=== PATIENT | male | born 1970 | race Caucasian/White ===

== ENCOUNTER 2020-06-06 06:46 | Outpatient (REF) | payer BC, SELFPAY ==
[2020-06-06 07:38] LABS: MANUAL DIFF FLAG NO
[2020-06-06 07:47] LABS: Basophils Percent Auto 0.4 % (0-2); Eosinophils Absolute Auto 0.1 X10*3/uL (0.0-0.4); Eosinophils Percent Auto 1.7 % (0-4); Lymphocytes Absolute Auto 1.5 X10*3/uL (1.2-4.9); Lymphocytes Percent Auto 31.5 % (20-40); Mean Corpuscular Hemoglobin 25.5 pg (27.0-33.0); Mean Corpuscular Volume 81.5 fL (80-98); Monocytes Absolute Auto 0.2 X10*3/uL (0.1-1.2); Monocytes Percent Auto 4.8 % (2-11); Neutrophils Absolute Auto 2.8 X10*3/uL (2.0-8.3); Neutrophils Percent Auto 61.6 % (45-73); Platelet Count 281 X10*3/uL (160-400); White Blood Count 4.6 X10*3/uL (4.8-10.8)
[2020-06-06 08:31] LABS: Albumin Level 4.1 g/dL (3.5-5.0); Alkaline Phosphatase 64 U/L (39-117); Anion Gap 13 (12-20); Bilirubin Total 0.4 mg/dL (0.0-1.0); Blood Urea Nitrogen 18 mg/dL (9-16); C Reactive Protein 1.28 mg/dL (< or = 0.50); Carbon Dioxide 24 mmol/L (22-29); Chloride 107 mmol/L (96-108); Cholesterol 135 mg/dL; Estimated Glomerular Filt Rate > 60; Glucose Random 91 mg/dL (60-115); HDL Cholesterol 56 mg/dL; LDL Cholesterol Calculated 64 mg/dl; Percent Iron Saturation 11 % (15-50); Potassium 4.1 mmol/l (3.3-5.1); Sodium 140 mmol/L (135-145); Total Iron Binding Capacity 387 mcg/dL (228-428); Total Protein 7.1 g/dL (6.5-8.0); Triglycerides 75 mg/dL; Unsaturated Iron Binding 346 ug/dL
[2020-06-06 08:36] LABS: TSH reflex Free T4 1.53 mIU/mL (0.32-4.0); Vitamin D 25-OH Total 21.3 ng/mL (>30)
[2020-06-06 08:50] LABS: Folate 6.4 ng/mL (> or = 4.0); Vitamin B12 517 pg/mL (200-900)
[2020-06-06 09:59] LABS: Estimated Average Glucose 97 mg/dL
[2020-06-09 14:56] LABS: Insulin Level Total 11.2 uIU/mL
[2020-06-09 20:21] LABS: Calcium (PTHI) 9.2 mg/dL (8.6-10.3); PTHI 53 pg/mL (14-64)
[2020-06-10 17:32] LABS: Zinc 72 mcg/dL (60-130)
[2020-06-10 21:21] LABS: Vitamin A 45 mcg/dL (38-98)
[2020-06-12 13:32] LABS: Vitamin B1 <6 nmol/L (8-30)
[2020-07-31 11:20] LABS: Red Blood Count 4.59 X10*6/uL (4.20-5.50)
[2020-07-31 11:23] LABS: Hemoglobin 11.7 g/dl (12.0-16.0); Mean Platelet Volume 10.3 fL (9.4-12.3)
[2020-07-31 11:24] LABS: Hematocrit 37.4 % (37-47)
[2020-07-31 11:25] LABS: Mean Corpuscular HGB Conc 31.3 g/dl (31.0-35.0)
[2020-07-31 11:58] LABS: Ferritin 9 ng/mL (10-250); Iron 41 mcg/dL (30-160)
[2020-07-31 11:59] LABS: Alanine Aminotransferase 12 U/L (0-31); Aspartate Amino Transferase 13 U/L (5-31)
== END 2020-06-06 06:47 | disposition home or self-care (01) ==
LOC: HO.LAB 06:46
PROVIDERS: PCP Family Medicine; Visit Provider Surgery
DX: Z01.818 Encounter for other preprocedural examination (principal)
CPT/HCPCS: 36415; 80053; 80061; 82306; 82607; 82728; 82746; 83036; 83525; 83540; 83970; 84425; 84443; 84590; 84630; 85025; 86140

== ENCOUNTER → 2020-06-09 13:09 | Outpatient (BNVA) | payer BC, SELFPAY | PROVIDERS: PCP Family Medicine; Visit Provider Dietitian, Registered | DX: Z76.89 Persons encountering health services in other specified circumstances (principal) ==

== ENCOUNTER → 2020-06-10 13:25 | Outpatient (BNVA) | payer BC, SELFPAY | PROVIDERS: PCP Family Medicine; Visit Provider Surgery | DX: E66.01 Morbid (severe) obesity due to excess calories (principal); Z71.3 Dietary counseling and surveillance; Z68.42 Body mass index [BMI] 45.0-49.9, adult; Z79.899 Other long term (current) drug therapy ==

== ENCOUNTER → 2020-07-07 15:03 | Outpatient (BNVA) | payer BC, SELFPAY | PROVIDERS: Visit Provider Dietitian, Registered | DX: Z76.89 Persons encountering health services in other specified circumstances (principal) ==

== ENCOUNTER → 2020-07-24 13:27 | Outpatient (BNVA) | payer BC, SELFPAY | PROVIDERS: Visit Provider Surgery | DX: Z76.89 Persons encountering health services in other specified circumstances (principal) ==

== ENCOUNTER 2020-07-30 06:34 | Day surgery (SDC) | payer BC, SELFPAY ==
[2020-07-24 11:01] VITALS: BMI 45.4
--- NOTE | 2020-07-29 09:02 | MHC.SHP ---
Pre-Procedural Eval Section B Chief Complaint: gerd Allergies: Allergies Allergy/AdvReac Type Severity Reaction Status Date / Time hydrochlorothiazide Allergy Unknown unknown Verified 07/24/20 14:09 Plan Patient has been examined and remains a candidate for the planned procedure
--- NOTE | 2020-07-29 12:23 | P.CONAN_ITS ---
Documented by User: Kirsten Shanks 07/29/20 12:27 HPI - Anesthesia Eval Consult details Narrative: 50yo F for Upper Endoscopy s/p gastric sleeve PMFSH Past Medical History Medical History TASHA positive Anxiety Cervical radiculopathy Depression Fibromyalgia GERD (gastroesophageal reflux disease) HTN (hypertension) Iron deficiency anemia Low back pain Morbid obesity with BMI of 45.0-49.9, adult Osteoarthritis Sleep apnea with use of continuous positive airway pressure (CPAP) Family History Family History Father HTN (hypertension) CHF (congestive heart failure) Heart attack Mother Hyperthyroidism Type 2 diabetes mellitus Daughter Crohn's disease Son No problems noted. Brother No problems noted. Sister No problems noted. Surgical History Surgical History History of laparoscopic cholecystectomy History of sleeve gastrectomy S/P endometrial ablation Social History Social History Are you a primary vehicle care specialist to a significant other at home: No Do you presently have visiting nurse or other home services: No Alcohol intake: current Alcohol intake frequency: a few times a month Smoking Status: Never smoker Use of substances other than those prescribed or required for medical reasons: No Advance Directives: No Advance Directives Information Provided: No Advance Directives on File: No Recently lost weight without trying: No Meds Allergies Allergy/AdvReac Type Severity Reaction Status Date / Time hydrochlorothiazide Allergy Unknown unknown Verified 07/24/20 14:09 Home Medications Medication Instructions Recorded Confirmed Type amlodipine 10 mg tablet 10 mg PO DAILY 06/10/20 07/30/20 History escitalopram oxalate 10 mg tablet 10 mg PO DAILY 06/10/20 07/24/20 History gabapentin 100 mg capsule 100 mg PO BID 06/10/20 07/30/20 History lisinopril 10 mg tablet 10 mg PO DAILY 06/10/20 07/24/20 History omeprazole magnesium 20 mg 20 mg PO BID 06/10/20 07/30/20 History capsule,delayed release tretinoin 0.025 % topical cream 1 applic TOPICAL BEDTIME 06/10/20 07/24/20 History Exam Exam Date and Time: July 29, 2020 1223 Height,Weight and Vital Signs: Height 5 ft 8 in Weight 135.624 kg Pertinent Lab Results Pertinent Lab Results: Laboratory Tests 06/06/20 06/06/20 07:15 07:15 WBC 4.6 L Hgb 11.7 L Hct 37.4 L Plt Count 281 Sodium 140 Potassium 4.1 Chloride 107 Carbon Dioxide 24 BUN 18 H Creatinine 0.82 Assessment and Plan Assessment Anesthesia Assessment: Chart Reviewed Documented by User: Camila Loyd 07/30/20 07:34 [facility] Past Medical History Medical History TASHA positive Anxiety Cervical radiculopathy Depression Fibromyalgia GERD (gastroesophageal reflux disease) HTN (hypertension) Iron deficiency anemia Low back pain Morbid obesity with BMI of 45.0-49.9, adult Osteoarthritis Sleep apnea with use of continuous positive airway pressure (CPAP) Family History Family History Father HTN (hypertension) CHF (congestive heart failure) Heart attack Mother Hyperthyroidism Type 2 diabetes mellitus Daughter Crohn's disease Son No problems noted. Brother No problems noted. Sister No problems noted. Family history of problems with anesthesia: No Surgical History Surgical History History of laparoscopic cholecystectomy History of sleeve gastrectomy S/P endometrial ablation History of Problems with Anesthesia: No Social History Social History Are you a primary vehicle care specialist to a significant other at home: No Do you presently have visiting nurse or other home services: No Alcohol intake: current Alcohol intake frequency: a few times a month Smoking Status: Never smoker Use of substances other than those prescribed or required for medical reasons: No Advance Directives: No Advance Directives Information Provided: No Advance Directives on File: No Recently lost weight without trying: No Meds Allergies Allergy/AdvReac Type Severity Reaction Status Date / Time hydrochlorothiazide Allergy Unknown unknown Verified 07/24/20 14:09 Home Medications Medication Instructions Recorded Confirmed Type amlodipine 10 mg tablet 10 mg PO DAILY 06/10/20 07/30/20 History escitalopram oxalate 10 mg tablet 10 mg PO DAILY 06/10/20 07/24/20 History gabapentin 100 mg capsule 100 mg PO BID 06/10/20 07/30/20 History lisinopril 10 mg tablet 10 mg PO DAILY 06/10/20 07/24/20 History omeprazole magnesium 20 mg 20 mg PO BID 06/10/20 07/30/20 History capsule,delayed release tretinoin 0.025 % topical cream 1 applic TOPICAL BEDTIME 06/10/20 07/24/20 History Exam Height,Weight and Vital Signs: Vital Signs Temp Pulse Resp BP Pulse Ox 07/30/20 07:09 99 F 71 20 122/68 97 Repeat temp 97.8F Airway Mallampati Class: III TM Dist: >3cm Neck ROM: Full Loose/Missing/Broken Teeth: Yes (Caps intact) Heart: RRR Lungs: CTAB Assessment and Plan Assessment Anesthesia Assessment: Anesthesia Plan Discussed and Chart Reviewed Final Anesthetic Review NPO: Yes ASA Class: III Final Preanesthetic Review: No Changes in Pt Med Stat, Meds/Allgs Chart Reviewed, Consent Obtained/Reviewed and Anes Risks/Benef Reviewed Patient Risk: Intermediate Procedure Risk: Low Anesthetic Plan Anesthetic Plan: MAC: Disposition: Standard PACU
[2020-07-30 07:09] VITALS: BP 122/68; PULSE 71; RESP 20; TEMP 37.2; O2SAT 97
[2020-07-30 07:31] VITALS: TEMP 36.6
[2020-07-30 08:00] VITALS: BP 94/48; PULSE 65; RESP 16; TEMP 36.3; O2SAT 94
--- NOTE | 2020-07-30 08:00 | PM.OP ---
Brief Operative Note Date of Service: 07/30/20 Pre-op diagnosis: Weight gain after laparoscopic sleeve gastrectomy Post-op diagnosis: other (Small sliding hiatal hernia and antral gastritis) Procedure: Esophagogastroduodenoscopy with antral biopsy x2 Implants: None Surgeon: Vicki Barton MD Anesthesia: MAC Estimated blood loss (mL): 0 Pathology: other (Antral biopsy x2) Condition: stable Disposition: PACU
[2020-07-30 08:15] VITALS: BP 98/58; PULSE 60; RESP 20; TEMP 36.3; O2SAT 97
--- NOTE | 2020-07-30 08:39 | HO.POSTANES ---
Post Anesthesia Evaluation Post Anesthesia Evaluation Vital Signs: Vital Signs Temp Pulse Resp BP Pulse Ox 07/30/20 08:15 97.3 F 60 20 98/58 L 97 07/30/20 08:00 97.3 F 65 16 94/48 L 94 07/30/20 07:31 97.8 F 07/30/20 07:09 99 F 71 20 122/68 97 Anesthesia: Monitored Mental Status: Awake Pain Control: Satisfactory Nausea/Vomiting: None Hydration: Adequate Anesthesia-Related Issues: No Anes. Related Issues
--- NOTE | 2020-07-30 09:01 | OP_ITS ---
SURGEON: Vicki Barton MD PROCEDURE PERFORMED: Esophagogastroduodenoscopy with antral biopsy x2. ESTIMATED BLOOD LOSS: 0 COMPLICATIONS: None. ANESTHESIA: Total intravenous anesthesia with propofol given by the nurse student accounts manager. ASSISTANTS: None. PREPROCEDURE DIAGNOSIS: Weight gain after gastric sleeve. POSTOPERATIVE DIAGNOSES: Small sliding hiatal hernia and antral gastritis. SPECIMEN: Antral biopsy x2. CONDITION: Postprocedure, good. DESCRIPTION OF PROCEDURE: The patient was brought into the operating room on the stretcher and placed in the left lateral decubitus position. A safety time-out was performed. A bite block was placed between the teeth. Total intravenous anesthesia was given by the nurse student accounts manager. Once the patient was adequately sedated, the gastroscope was placed in a posterior oropharynx, passed down the esophagus, evaluating esophageal mucosa, which was normal. There was a small sliding hiatal hernia. The GE junction was located at 40 cm from the incisors. The hiatus was located about 42 cm from the incisors. The gastroscope was easily passed into the gastric pouch, which was slightly large for her age. There was no evidence of torsion or stenosis. The mucosa appeared healthy up until the antrum, where there was some linear erythema and some granularity of the mucosa. This was biopsied x2 and passed off for pathology. The gastroscope was passed to the pre-pyloric region through the pylorus into the duodenum down to the 3rd portion of duodenum, all of which was normal. All of these portions of the upper endoscopy were documented using photo documentation. The gastroscope was retracted back in the stomach. Stomach was desufflated and the gastroscope was removed without difficulty. The patient was sent to the recovery room in stable condition. MD BEAR Keating/JERALDL / [id number]
== END 2020-07-30 08:35 | disposition home or self-care (01) ==
PROVIDERS: Surgery; PCP Family Medicine; Visit Provider Nuclear Medicine
PROC: 0DJ08ZZ Inspection of Upper Intestinal Tract, Via Natural or Artificial Opening Endoscopic (ICD-10-PCS; CPT 43235; principal; 2020-07-30 07:30)
DX: K29.70 Gastritis, unspecified, without bleeding (principal); K44.9 Diaphragmatic hernia without obstruction or gangrene; E66.01 Morbid (severe) obesity due to excess calories; Z68.42 Body mass index [BMI] 45.0-49.9, adult; Z98.84 Bariatric surgery status; Z90.49 Acquired absence of other specified parts of digestive tract
CPT/HCPCS: 43239; 88305; 88342; J1100

== ENCOUNTER → 2020-08-21 15:07 | Outpatient (BNVA) | payer BC, SELFPAY | PROVIDERS: PCP Family Medicine; Visit Provider Surgery | DX: Z76.89 Persons encountering health services in other specified circumstances (principal) ==

== ENCOUNTER → 2020-09-15 08:42 | Outpatient (BNVA) | payer BC, SELFPAY | PROVIDERS: Visit Provider Physician Assistant ==

== ENCOUNTER → 2020-10-27 08:48 | Outpatient (BNVA) | payer BC, SELFPAY | PROVIDERS: Visit Provider Dietitian, Registered ==

== ENCOUNTER 2020-11-04 10:14 | Outpatient (REF) | payer BC, SELFPAY ==
[2020-11-04 11:37] LABS: MANUAL DIFF FLAG NO
[2020-11-04 11:54] LABS: Glucose Urine UA NEG (NEG); Leukocyte Esterase Urine 1+ (NEG); Nitrite Urine NEG (NEG); Urine Blood NEG (NEG); Urine Ketones NEG (NEG); Urine Protein NEG (NEG-TRACE)
[2020-11-04 11:54] LABS: Basophils Percent Auto 0.6 % (0-2); Eosinophils Absolute Auto 0.1 X10*3/uL (0.0-0.4); Eosinophils Percent Auto 1.7 % (0-4); Hemoglobin 12.1 g/dl (12.0-16.0); Imm Gran Abs Auto 0.01 X10*3/uL (0.00-0.03); Imm Gran Pct Auto 0.2 % (0.0-0.4); Lymphocytes Absolute Auto 1.9 X10*3/uL (1.2-4.9); Lymphocytes Percent Auto 35.4 % (20-40); Mean Corpuscular HGB Conc 31.8 g/dl (31.0-35.0); Mean Corpuscular Hemoglobin 25.9 pg (27.0-33.0); Mean Corpuscular Volume 81.2 fL (80-98); Mean Platelet Volume 10.3 fL (9.4-12.3); Monocytes Absolute Auto 0.2 X10*3/uL (0.1-1.2); Neutrophils Percent Auto 58.1 % (45-73); Platelet Count 277 X10*3/uL (160-400); Red Blood Count 4.68 X10*6/uL (4.20-5.50); Red Cell Distribution Width 14.3 % (11.0-16.0); White Blood Count 5.2 X10*3/uL (4.8-10.8)
[2020-11-04 11:58] LABS: Color Urine YELLOW
[2020-11-04 11:59] LABS: Appearance Urine HAZY
[2020-11-04 12:28] LABS: Bacteria Urine 1+ /LPF; Mucus Urine TRACE /LPF; RBC Urine 0 /HPF (0); Renal Epithelial Cells Urine TRACE /LPF; Squamous Epithelial Cell Urine 1+ /LPF
[2020-11-04 12:35] LABS: Thyroid Stimulating Hormone 1.31 uIU/mL (0.32-4.0)
[2020-11-04 12:36] LABS: Alanine Aminotransferase 14 U/L (0-31); Albumin Level 4.4 g/dL (3.5-5.0); Alkaline Phosphatase 69 U/L (39-117); Anion Gap 16 (12-20); Aspartate Amino Transferase 18 U/L (5-31); Bilirubin Total 0.4 mg/dL (0.0-1.0); Blood Urea Nitrogen 23 mg/dL (9-16); C Reactive Protein 1.11 mg/dL (< or = 0.50); Calcium 9.6 mg/dL (8.4-10.2); Carbon Dioxide 25 mmol/L (22-29); Chloride 106 mmol/L (96-108); Estimated Glomerular Filt Rate > 60; Glucose Random 91 mg/dL (60-115); Potassium 4.5 mmol/L (3.3-5.1); Sodium 142 mmol/L (135-145); Total Protein 7.5 g/dL (6.5-8.0)
[2020-11-04 13:23] LABS: Erythrocyte Sedimentation Rate 33 MM/HR (0-20)
[2020-11-05 13:01] LABS: Complement C3 170 mg/dL (83-193)
[2020-11-05 21:27] LABS: Thyroglobulin Antibodies <1 IU/mL (< or = 1); Thyroid Peroxidase Antibodies <1 IU/mL (<9)
[2020-11-06 13:48] LABS: Anti DNA DS Antibody 1 IU/mL; SM/Ribonucleoprotein Ab <1.0 NEG AI (<1.0 NEG); Smith Protein <1.0 NEG AI (<1.0 NEG)
[2020-11-07 22:17] LABS: Anti Nuclear Antibody Screen POSITIVE (NEGATIVE)
== END 2020-11-04 10:15 | disposition home or self-care (01) ==
LOC: HO.LAB 10:14
PROVIDERS: PCP Pediatrics; Visit Provider Student in an Organized Health Care Education/Training Program
DX: R76.8 Other specified abnormal immunological findings in serum (principal); M79.7 Fibromyalgia; Z79.899 Other long term (current) drug therapy
CPT/HCPCS: 36415; 80053; 81001; 84443; 85025; 85652; 86038; 86039; 86140; 86160; 86225; 86235; 86376; 86800

== ENCOUNTER → 2020-12-08 14:29 | Outpatient (BNVA) | payer BC, SELFPAY | PROVIDERS: Visit Provider Physician Assistant ==

== ENCOUNTER → 2021-02-12 08:55 | Outpatient (BNVA) | payer BC, SELFPAY | PROVIDERS: Visit Provider Physician Assistant ==

== ENCOUNTER → 2021-03-16 10:02 | Outpatient (BNVA) | payer BC, SELFPAY | PROVIDERS: Visit Provider Physician Assistant ==

== ENCOUNTER → 2021-04-30 08:14 | Outpatient (BNVA) | payer BC, SELFPAY | PROVIDERS: PCP Internal Medicine; Visit Provider Dietitian, Registered | DX: E66.9 Obesity, unspecified (principal); Z68.38 Body mass index [BMI] 38.0-38.9, adult | CPT/HCPCS: 97803 ==

== ENCOUNTER → 2021-05-29 08:46 | Outpatient (BNVA) | payer BC, SELFPAY | PROVIDERS: PCP Internal Medicine; Visit Provider Dietitian, Registered ==

== ENCOUNTER → 2021-06-02 08:04 | Outpatient (BNVA) | payer BC, SELFPAY | PROVIDERS: PCP Internal Medicine; Visit Provider Dietitian, Registered | DX: E66.9 Obesity, unspecified (principal); Z68.38 Body mass index [BMI] 38.0-38.9, adult | CPT/HCPCS: 97803 ==